=== PATIENT | female | born 1940 | race Caucasian/White ===

== ENCOUNTER 2019-05-19 19:38 | Inpatient (IN) | payer MEDICARE ==
[~2019-05-19] VITALS: Ht 157.5 cm; Wt 54.3 kg
[2019-05-19] MEDS ORDERED: SODIUM CHLORIDE 0.9% 1,000ML IVBOLUS ONE (20:00)
--- NOTE | 2019-05-19 20:11 | NUR ---
[facility] transfer, critically low sodium level at 124, high plateletes and high white blood cell count, fight fever and weakness, antibiotics family does not know source or reason for prescriptions per triage note
--- NOTE | 2019-05-19 20:38 | NUR ---
given ns bolus
[2019-05-19 21:20] LABS: MEAN CORPUSCULAR HEMOGLOBIN 30.5 pg (27.0-34.8); MEAN CORPUSCULAR HGB CONC 32.9 g/dL (32.4-35.8); MEAN CORPUSCULAR VOLUME 92.7 fL (80-100); MEAN PLATELET VOLUME 6.8 fL (7.4-10.4); PLATELET COUNT 528 x10^3/uL (130-400); RED BLOOD COUNT 3.73 x10^6/uL (3.82-5.3); RED CELL DISTRIBUTION WIDTH 13.4 % (9.6-15.2)
--- NOTE | 2019-05-19 21:21 | NUR ---
liter bolus was infused pt is resting vss bp is slight better family at bedside
[2019-05-19 21:34] LABS: ALANINE AMINOTRANSFERASE 34 U/L (12-78); ALBUMIN 1.7 g/dL (3.4-5.0); ANION GAP 9 mmol/L (5-15); CALCIUM 7.9 mg/dL (8.5-10.1); CHLORIDE 96 mmol/L (98-107); CREATININE 0.41 mg/dL (0.55-1.02)
[2019-05-19 21:37] LABS: ALKALINE PHOSPHATASE 80 U/L (45-117); BILIRUBIN,TOTAL 0.3 mg/dL (0.2-1.0); TOTAL PROTEIN 5.7 g/dL (6.4-8.2); TROPONIN I < 0.015 ng/mL (0.000-0.045)
[2019-05-19 21:38] LABS: MD YES
[2019-05-19 21:41] LABS: <PLATELET ESTIMATE> INCREASED; <RBC MORPHOLOGY> NORMAL; EOS#(MANUAL) 0.43 x10^3/uL (0.0-0.4); EOS% (MANUAL) 2 % (1-7); LYMPH#(MANUAL) 1.08 x10^3/uL (1-3.4); LYMPHS% (MANUAL) 5 % (22-44); MONOS% (MANUAL) 6 % (2-9); SEG#(MANUAL) 18.79 x10^3/uL (1.8-6.8); SEGS% (MANUAL) 87 % (42-75)
[2019-05-19 21:42] LABS: SMALL PLATELETS 1+
--- NOTE | 2019-05-19 22:28 | NUR ---
vss stable pt urinated to bed [facility]
--- NOTE | 2019-05-19 22:59 | NUR ---
[facility] at bed side for admit
[2019-05-19] MEDS ORDERED: BISACODYL 10 MG SUPP PR PRN (23:30)
[2019-05-19] MEDS ORDERED: ONDANSETRON ODT 4 MG PO PRN (23:30)
--- NOTE | 2019-05-19 23:43 | NUR ---
given report to zach griffin at bed side vss updated
[2019-05-20 00:03] VITALS: BP 107/70
[2019-05-20] MEDS: SODIUM CHLORIDE 0.9% 1,000 ML IV SCH ×2 (00:38→12:49)
[2019-05-20] MEDS: HEPARIN 5,000 UNITS/ML, 1ML SQ SCH ×3 (00:38→17:16)
[2019-05-20 01:00] VITALS: BP 107/70
[2019-05-20 02:37] LABS: MICROSCOPIC NOT IND
[2019-05-20 02:41] LABS: CULTURE INDICATED? NO
[2019-05-20 06:31] LABS: MEAN CORPUSCULAR HEMOGLOBIN 30.7 pg (27.0-34.8); MEAN CORPUSCULAR HGB CONC 32.5 g/dL (32.4-35.8); MEAN CORPUSCULAR VOLUME 94.4 fL (80-100); MEAN PLATELET VOLUME 7.2 fL (7.4-10.4); PLATELET COUNT 531 x10^3/uL (130-400); RED BLOOD COUNT 3.48 x10^6/uL (3.82-5.3); RED CELL DISTRIBUTION WIDTH 13.2 % (9.6-15.2)
[2019-05-20 06:42] LABS: ALBUMIN 1.6 g/dL (3.4-5.0); ANION GAP 7 mmol/L (5-15); CALCIUM 7.7 mg/dL (8.5-10.1); CHLORIDE 99 mmol/L (98-107)
[2019-05-20 06:45] LABS: ALANINE AMINOTRANSFERASE 30 U/L (12-78); ALKALINE PHOSPHATASE 72 U/L (45-117); BILIRUBIN,TOTAL 0.3 mg/dL (0.2-1.0); CREATININE 0.29 mg/dL (0.55-1.02)
[2019-05-20 07:47] VITALS: BP 98/63
[2019-05-20 07:49] LABS: MD YES
[2019-05-20 07:51] LABS: BAND#(MANUAL) 0.61 x10^3/uL; BANDS%(MANUAL) 3 % (0-7); EOS#(MANUAL) 0.81 x10^3/uL (0.0-0.4); EOS% (MANUAL) 4 % (1-7); LYMPH#(MANUAL) 1.02 x10^3/uL (1-3.4); LYMPHS% (MANUAL) 5 % (22-44); MONOS#(MANUAL) 0.61 x10^3/uL (0.3-2.7); MONOS% (MANUAL) 3 % (2-9); SEG#(MANUAL) 17.26 x10^3/uL (1.8-6.8); SEGS% (MANUAL) 85 % (42-75)
[2019-05-20 07:52] LABS: <PLATELET ESTIMATE> INCREASED; <PLT MORPHOLOGY> NORMAL PLT MORPH; <RBC MORPHOLOGY> NORMAL
[2019-05-20] MEDS: SENNA/DOCUSATE TABLET PO SCH (08:50)
[2019-05-20 13:19] VITALS: BP 111/65
[2019-05-20] MEDS: ACETAMINOPHEN 325 MG TABLET PO PRN (17:17)
[2019-05-20 19:15] VITALS: BP 95/59
[2019-05-21] MEDS: HEPARIN 5,000 UNITS/ML, 1ML SQ SCH ×3 (00:30→16:30)
[2019-05-21] MEDS: SODIUM CHLORIDE 0.9% 1,000 ML IV SCH ×2 (01:18→15:21)
[2019-05-21 01:34] VITALS: BP 106/66
[2019-05-21 04:55] LABS: MEAN CORPUSCULAR HEMOGLOBIN 31.4 pg (27.0-34.8); MEAN CORPUSCULAR HGB CONC 34.1 g/dL (32.4-35.8); MEAN CORPUSCULAR VOLUME 92.3 fL (80-100); MEAN PLATELET VOLUME 7.2 fL (7.4-10.4); PLATELET COUNT 556 x10^3/uL (130-400); RED BLOOD COUNT 3.42 x10^6/uL (3.82-5.3)
[2019-05-21 05:10] LABS: ANION GAP 4 mmol/L (5-15); CALCIUM 7.6 mg/dL (8.5-10.1); CHLORIDE 102 mmol/L (98-107); CREATININE 0.33 mg/dL (0.55-1.02)
[2019-05-21 06:00] LABS: BASOPHILS # (AUTO) 0.14 x10^3/uL (0-0.1); BASOPHILS % (AUTO) 1 % (0-1); EOSINOPHILS # (AUTO) 0.61 x10^3/uL (0-0.4); EOSINOPHILS % (AUTO) 3 % (1-7); LYMPHOCYTES # (AUTO) 1.16 x10^3/uL (1-3.4); LYMPHOCYTES % (AUTO) 6 % (22-44); MD SCAN; MONOCYTES # (AUTO) 1.09 x10^3/uL (0.2-0.8); MONOCYTES % (AUTO) 6 % (2-9); NEUTROPHILS # (AUTO) 16.81 x10^3/uL (1.8-6.8); NEUTROPHILS % (AUTO) 85 % (42-75)
[2019-05-21 08:20] VITALS: BP 103/67
[2019-05-21] MEDS: SENNA/DOCUSATE TABLET PO SCH (08:47)
[2019-05-21] MEDS ORDERED: FLUMAZENIL 0.1 MG/1 ML, 5ML ONE (08:55)
[2019-05-21] MEDS ORDERED: MIDAZOLAM 1 MG/ML, 5ML ONE (08:55)
[2019-05-21] MEDS ORDERED: NALOXONE 1 MG/ML, 2ML ONE (08:55)
[2019-05-21] MEDS ORDERED: FENTANYL PF 100 MCG/2ML ONE (08:55)
[2019-05-21 12:12] VITALS: BP 110/68
[2019-05-21 19:51] VITALS: BP 117/76
[2019-05-22 00:26] VITALS: BP 110/71
[2019-05-22] MEDS: HEPARIN 5,000 UNITS/ML, 1ML SQ SCH ×3 (00:32→17:34)
[2019-05-22 04:54] LABS: ANION GAP 5 mmol/L (5-15); CALCIUM 7.4 mg/dL (8.5-10.1); CHLORIDE 99 mmol/L (98-107)
[2019-05-22 04:57] LABS: MEAN CORPUSCULAR HEMOGLOBIN 31.1 pg (27.0-34.8); MEAN CORPUSCULAR HGB CONC 33.7 g/dL (32.4-35.8); MEAN CORPUSCULAR VOLUME 92.2 fL (80-100); MEAN PLATELET VOLUME 7.1 fL (7.4-10.4); PLATELET COUNT 542 x10^3/uL (130-400); RED BLOOD COUNT 3.25 x10^6/uL (3.82-5.3); RED CELL DISTRIBUTION WIDTH 13.4 % (9.6-15.2)
[2019-05-22 05:21] LABS: CREATININE 0.31 mg/dL (0.55-1.02)
[2019-05-22] MEDS: SODIUM CHLORIDE 0.9% 1,000 ML IV SCH ×2 (05:35→17:51)
[2019-05-22 05:42] LABS: BASOPHILS # (AUTO) 0.01 x10^3/uL (0-0.1); BASOPHILS % (AUTO) 0 % (0-1); EOSINOPHILS # (AUTO) 0.36 x10^3/uL (0-0.4); EOSINOPHILS % (AUTO) 2 % (1-7); LYMPHOCYTES # (AUTO) 1.48 x10^3/uL (1-3.4); LYMPHOCYTES % (AUTO) 7 % (22-44); MD SCAN; MONOCYTES # (AUTO) 1.09 x10^3/uL (0.2-0.8); MONOCYTES % (AUTO) 5 % (2-9); NEUTROPHILS # (AUTO) 19.92 x10^3/uL (1.8-6.8); NEUTROPHILS % (AUTO) 87 % (42-75)
[2019-05-22 07:55] VITALS: BP 103/63
[2019-05-22] MEDS: SENNA/DOCUSATE TABLET PO SCH (09:50)
[2019-05-22] MEDS: ACETAMINOPHEN 325 MG TABLET PO PRN ×2 (13:35→17:51)
[2019-05-22 14:24] VITALS: BP 96/64
[2019-05-22 14:56] LABS: HCT (SEDRATE) 33.2 % (34.6-47.8)
[2019-05-22 15:09] LABS: CREATINE KINASE, TOTAL 21 U/L (26-192)
[2019-05-22 19:30] VITALS: BP 140/78
[2019-05-22 20:22] VITALS: BP 95/62
[2019-05-23] MEDS: HEPARIN 5,000 UNITS/ML, 1ML SQ SCH ×3 (00:43→16:30)
[2019-05-23 01:00] VITALS: BP 100/61
[2019-05-23 06:34] LABS: MEAN CORPUSCULAR HEMOGLOBIN 30.9 pg (27.0-34.8); MEAN CORPUSCULAR HGB CONC 33.7 g/dL (32.4-35.8); MEAN CORPUSCULAR VOLUME 91.8 fL (80-100); MEAN PLATELET VOLUME 6.9 fL (7.4-10.4); PLATELET COUNT 545 x10^3/uL (130-400); RED BLOOD COUNT 3.47 x10^6/uL (3.82-5.3); RED CELL DISTRIBUTION WIDTH 13.4 % (9.6-15.2)
[2019-05-23 06:43] LABS: ANION GAP 12 mmol/L (5-15); CALCIUM 7.5 mg/dL (8.5-10.1); CHLORIDE 100 mmol/L (98-107); CREATININE 0.25 mg/dL (0.55-1.02)
[2019-05-23 07:15] VITALS: BP 110/73
[2019-05-23 07:19] LABS: BASOPHILS # (AUTO) 0.01 x10^3/uL (0-0.1); BASOPHILS % (AUTO) 0 % (0-1); EOSINOPHILS # (AUTO) 0.55 x10^3/uL (0-0.4); EOSINOPHILS % (AUTO) 3 % (1-7); LYMPHOCYTES # (AUTO) 0.83 x10^3/uL (1-3.4); LYMPHOCYTES % (AUTO) 4 % (22-44); MD SCAN; MONOCYTES % (AUTO) 5 % (2-9); NEUTROPHILS # (AUTO) 17.92 x10^3/uL (1.8-6.8); NEUTROPHILS % (AUTO) 89 % (42-75)
[2019-05-23 08:35] LABS: ABSOLUTE RETICS # 0.079 x10^6/uL (0.5-2.5); RED BLOOD COUNT 3.5 x10^6/uL (3.82-5.3); RETICULOCYTE COUNT % 2.26 % (0.5-1.5)
[2019-05-23] MEDS: SENNA/DOCUSATE TABLET PO SCH (09:00)
[2019-05-23] MEDS: SODIUM CHLORIDE 0.9% 1,000 ML IV SCH (09:10)
[2019-05-23] MEDS ORDERED: LIDOCAINE-MPF 1%, 5ML ONE (11:21)
[2019-05-23] MEDS ORDERED: OMNIPAQUE 350 MG/ML, 75ML BOTTLE ONE (11:30)
[2019-05-23 12:47] VITALS: BP 108/71
[2019-05-23 19:35] VITALS: BP 100/66
[2019-05-24] MEDS: SODIUM CHLORIDE 0.9% 1,000 ML IV SCH ×2 (00:50→13:35)
[2019-05-24] MEDS: HEPARIN 5,000 UNITS/ML, 1ML SQ SCH ×3 (00:50→16:40)
[2019-05-24 00:59] VITALS: BP 124/72
[2019-05-24 04:57] LABS: MEAN CORPUSCULAR HEMOGLOBIN 30.9 pg (27.0-34.8); MEAN CORPUSCULAR HGB CONC 33.3 g/dL (32.4-35.8); MEAN CORPUSCULAR VOLUME 92.7 fL (80-100); MEAN PLATELET VOLUME 6.8 fL (7.4-10.4); PLATELET COUNT 569 x10^3/uL (130-400); RED BLOOD COUNT 3.46 x10^6/uL (3.82-5.3); RED CELL DISTRIBUTION WIDTH 13.4 % (9.6-15.2)
[2019-05-24 05:01] LABS: ANION GAP 5 mmol/L (5-15); CALCIUM 7.4 mg/dL (8.5-10.1); CHLORIDE 101 mmol/L (98-107); CREATININE 0.21 mg/dL (0.55-1.02)
[2019-05-24 05:45] LABS: BASOPHILS # (AUTO) 0.01 x10^3/uL (0-0.1); BASOPHILS % (AUTO) 0 % (0-1); EOSINOPHILS # (AUTO) 0.33 x10^3/uL (0-0.4); EOSINOPHILS % (AUTO) 2 % (1-7); LYMPHOCYTES # (AUTO) 1.32 x10^3/uL (1-3.4); LYMPHOCYTES % (AUTO) 7 % (22-44); MD SCAN; MONOCYTES # (AUTO) 1.04 x10^3/uL (0.2-0.8); MONOCYTES % (AUTO) 5 % (2-9); NEUTROPHILS # (AUTO) 17.52 x10^3/uL (1.8-6.8); NEUTROPHILS % (AUTO) 87 % (42-75)
[2019-05-24 07:08] VITALS: BP 109/69
[2019-05-24] MEDS: SENNA/DOCUSATE TABLET PO SCH (10:01)
[2019-05-24 14:47] VITALS: BP 118/79
[2019-05-24 18:34] VITALS: BP 132/87
[2019-05-25] MEDS: HEPARIN 5,000 UNITS/ML, 1ML SQ SCH ×3 (00:14→18:10)
[2019-05-25 01:13] VITALS: BP 105/61
[2019-05-25] MEDS: SODIUM CHLORIDE 0.9% 1,000 ML IV SCH ×2 (01:51→17:00)
[2019-05-25 06:38] VITALS: BP 110/73
[2019-05-25] MEDS: SENNA/DOCUSATE TABLET PO SCH (09:36)
[2019-05-25 14:02] LABS: MEAN CORPUSCULAR HEMOGLOBIN 30.2 pg (27.0-34.8); MEAN CORPUSCULAR HGB CONC 32.3 g/dL (32.4-35.8); MEAN CORPUSCULAR VOLUME 93.4 fL (80-100); MEAN PLATELET VOLUME 7.1 fL (7.4-10.4); PLATELET COUNT 613 x10^3/uL (130-400); RED BLOOD COUNT 3.57 x10^6/uL (3.82-5.3); RED CELL DISTRIBUTION WIDTH 13.6 % (9.6-15.2)
[2019-05-25 14:17] LABS: BASOPHILS # (AUTO) 0.01 x10^3/uL (0-0.1); BASOPHILS % (AUTO) 0 % (0-1); EOSINOPHILS % (AUTO) 0 % (1-7); LYMPHOCYTES # (AUTO) 1.06 x10^3/uL (1-3.4); LYMPHOCYTES % (AUTO) 5 % (22-44); MD SCAN; MONOCYTES # (AUTO) 0.38 x10^3/uL (0.2-0.8); MONOCYTES % (AUTO) 2 % (2-9); NEUTROPHILS # (AUTO) 19.51 x10^3/uL (1.8-6.8); NEUTROPHILS % (AUTO) 93 % (42-75)
[2019-05-25 14:21] VITALS: BP 105/70
[2019-05-25 20:31] VITALS: BP 105/69
[2019-05-25] MEDS: ACETAMINOPHEN 325 MG TABLET PO PRN (21:00)
[2019-05-26] MEDS: HEPARIN 5,000 UNITS/ML, 1ML SQ SCH ×3 (00:30→16:53)
[2019-05-26 01:03] VITALS: BP 109/61
[2019-05-26] MEDS: SODIUM CHLORIDE 0.9% 1,000 ML IV SCH ×2 (06:20→19:40)
[2019-05-26 06:26] LABS: MEAN CORPUSCULAR HEMOGLOBIN 30.9 pg (27.0-34.8); MEAN CORPUSCULAR HGB CONC 33.3 g/dL (32.4-35.8); MEAN CORPUSCULAR VOLUME 92.8 fL (80-100); MEAN PLATELET VOLUME 7.4 fL (7.4-10.4); PLATELET COUNT 601 x10^3/uL (130-400); RED BLOOD COUNT 3.21 x10^6/uL (3.82-5.3); RED CELL DISTRIBUTION WIDTH 13.8 % (9.6-15.2)
[2019-05-26 06:27] LABS: ANION GAP 4 mmol/L (5-15); CALCIUM 7.7 mg/dL (8.5-10.1); CHLORIDE 105 mmol/L (98-107)
[2019-05-26 06:29] LABS: CREATININE 0.27 mg/dL (0.55-1.02)
[2019-05-26 06:56] LABS: BASOPHILS # (AUTO) 0.03 x10^3/uL (0-0.1); BASOPHILS % (AUTO) 0 % (0-1); EOSINOPHILS # (AUTO) 0.07 x10^3/uL (0-0.4); EOSINOPHILS % (AUTO) 0 % (1-7); LYMPHOCYTES # (AUTO) 1.95 x10^3/uL (1-3.4); LYMPHOCYTES % (AUTO) 11 % (22-44); MD SCAN; MONOCYTES # (AUTO) 1.14 x10^3/uL (0.2-0.8); MONOCYTES % (AUTO) 6 % (2-9); NEUTROPHILS % (AUTO) 82 % (42-75)
[2019-05-26 07:29] VITALS: BP 106/69
[2019-05-26] MEDS: SENNA/DOCUSATE TABLET PO SCH (08:55)
[2019-05-26] MEDS: ACETAMINOPHEN 325 MG TABLET PO PRN (09:05)
[2019-05-26 13:18] VITALS: BP 116/73
[2019-05-26 20:29] VITALS: BP 118/75
[2019-05-27] MEDS: HEPARIN 5,000 UNITS/ML, 1ML SQ SCH ×3 (00:30→17:30)
[2019-05-27 01:25] VITALS: BP 133/82
[2019-05-27 06:43] VITALS: BP 94/50
[2019-05-27 07:35] VITALS: BP 118/72
[2019-05-27] MEDS: SODIUM CHLORIDE 0.9% 1,000 ML IV SCH ×2 (09:00→20:24)
[2019-05-27] MEDS: SENNA/DOCUSATE TABLET PO SCH (09:39)
[2019-05-27] MEDS: ACETAMINOPHEN 325 MG TABLET PO PRN (09:39)
[2019-05-27 12:44] VITALS: BP 108/68
[2019-05-27 18:41] VITALS: BP 116/72
[2019-05-28 00:41] VITALS: BP 121/69
[2019-05-28] MEDS: HEPARIN 5,000 UNITS/ML, 1ML SQ SCH ×3 (00:43→18:09)
[2019-05-28 06:20] LABS: CHLORIDE 104 mmol/L (98-107)
[2019-05-28 06:26] LABS: ALBUMIN 1.7 g/dL (3.4-5.0); ANION GAP 6 mmol/L (5-15); CALCIUM 7.8 mg/dL (8.5-10.1); CREATININE 0.32 mg/dL (0.55-1.02)
[2019-05-28 06:27] LABS: MEAN CORPUSCULAR HEMOGLOBIN 30.7 pg (27.0-34.8); MEAN CORPUSCULAR HGB CONC 33.2 g/dL (32.4-35.8); MEAN CORPUSCULAR VOLUME 92.7 fL (80-100); MEAN PLATELET VOLUME 7.4 fL (7.4-10.4); PLATELET COUNT 682 x10^3/uL (130-400); RED CELL DISTRIBUTION WIDTH 13.7 % (9.6-15.2)
[2019-05-28 06:55] LABS: BASOPHILS # (AUTO) 0.04 x10^3/uL (0-0.1); BASOPHILS % (AUTO) 0 % (0-1); EOSINOPHILS # (AUTO) 0.33 x10^3/uL (0-0.4); EOSINOPHILS % (AUTO) 2 % (1-7); LYMPHOCYTES # (AUTO) 2.51 x10^3/uL (1-3.4); LYMPHOCYTES % (AUTO) 11 % (22-44); MD SCAN; MONOCYTES # (AUTO) 1.27 x10^3/uL (0.2-0.8); MONOCYTES % (AUTO) 6 % (2-9); NEUTROPHILS # (AUTO) 17.77 x10^3/uL (1.8-6.8); NEUTROPHILS % (AUTO) 81 % (42-75)
[2019-05-28 07:11] VITALS: BP 128/80
[2019-05-28] MEDS ORDERED: POTASSIUM CHLORIDE 20 MEQ TAB.ER.PRT PO ONE (09:00)
[2019-05-28] MEDS: SENNA/DOCUSATE TABLET PO SCH (10:05)
[2019-05-28 15:21] VITALS: BP 121/82
[2019-05-28 18:51] VITALS: BP 109/74
[2019-05-29] MEDS: HEPARIN 5,000 UNITS/ML, 1ML SQ SCH ×3 (01:12→17:30)
[2019-05-29 03:43] VITALS: BP 114/72
[2019-05-29 06:50] LABS: MEAN CORPUSCULAR HEMOGLOBIN 30.5 pg (27.0-34.8); MEAN CORPUSCULAR HGB CONC 32.3 g/dL (32.4-35.8); MEAN CORPUSCULAR VOLUME 94.4 fL (80-100); MEAN PLATELET VOLUME 7.5 fL (7.4-10.4); PLATELET COUNT 631 x10^3/uL (130-400); RED BLOOD COUNT 3.69 x10^6/uL (3.82-5.3)
[2019-05-29 06:57] LABS: ANION GAP 6 mmol/L (5-15); CALCIUM 7.9 mg/dL (8.5-10.1); CHLORIDE 102 mmol/L (98-107); CREATININE 0.33 mg/dL (0.55-1.02)
[2019-05-29 07:53] VITALS: BP 109/72
[2019-05-29 08:33] LABS: MD YES
[2019-05-29 08:34] LABS: BAND#(MANUAL) 1.77 x10^3/uL; BANDS%(MANUAL) 7 % (0-7); EOS#(MANUAL) 0.51 x10^3/uL (0.0-0.4); EOS% (MANUAL) 2 % (1-7); LYMPH#(MANUAL) 2.02 x10^3/uL (1-3.4); LYMPHS% (MANUAL) 8 % (22-44); MONOS#(MANUAL) 0.51 x10^3/uL (0.3-2.7); MONOS% (MANUAL) 2 % (2-9); SEG#(MANUAL) 20.49 x10^3/uL (1.8-6.8); SEGS% (MANUAL) 81 % (42-75)
[2019-05-29 08:35] LABS: <PLATELET ESTIMATE> INCREASED; ANISOCYTOSIS 1+; LARGE PLATELETS 1+
[2019-05-29] MEDS: SENNA/DOCUSATE TABLET PO SCH (09:36)
[2019-05-29] MEDS: ACETAMINOPHEN 325 MG TABLET PO PRN (10:23)
[2019-05-29 13:25] VITALS: BP 103/68
[2019-05-29] MEDS ORDERED: POTASSIUM CHLORIDE 20 MEQ TAB.ER.PRT PO ONE (15:30)
[2019-05-29] MEDS: POLYETHYLENE GLYCOL 17 GM PACKET PO PRN (16:27)
[2019-05-29 19:59] VITALS: BP 127/82
[2019-05-30] MEDS: HEPARIN 5,000 UNITS/ML, 1ML SQ SCH ×3 (01:27→17:40)
[2019-05-30 02:54] VITALS: BP 137/84
[2019-05-30 07:05] VITALS: BP 114/78
[2019-05-30] MEDS: SENNA/DOCUSATE TABLET PO SCH (09:38)
[2019-05-30] MEDS: POLYETHYLENE GLYCOL 17 GM PACKET PO PRN (09:38)
[2019-05-30 13:31] VITALS: BP 102/63
[2019-05-30 20:48] VITALS: BP 101/60
[2019-05-31 01:37] VITALS: BP 120/76
[2019-05-31] MEDS: HEPARIN 5,000 UNITS/ML, 1ML SQ SCH ×3 (02:04→17:21)
[2019-05-31 07:29] VITALS: BP 121/81
[2019-05-31] MEDS: SENNA/DOCUSATE TABLET PO SCH (09:00)
[2019-05-31 13:26] VITALS: BP 96/60
[2019-05-31] MEDS ORDERED: PRED20TA PO (15:27)
[2019-05-31 20:07] VITALS: BP 105/63
[2019-06-01 00:46] VITALS: BP 113/63
[2019-06-01] MEDS: HEPARIN 5,000 UNITS/ML, 1ML SQ SCH ×3 (01:32→17:36)
[2019-06-01 07:38] VITALS: BP 104/64
[2019-06-01] MEDS: SENNA/DOCUSATE TABLET PO SCH (09:12)
[2019-06-01] MEDS: ACETAMINOPHEN 325 MG TABLET PO PRN (09:24)
[2019-06-01 12:10] VITALS: BP 103/61
[2019-06-01 21:00] VITALS: BP 107/65
[2019-06-02] MEDS: HEPARIN 5,000 UNITS/ML, 1ML SQ SCH ×2 (01:02→09:25)
[2019-06-02 01:29] VITALS: BP 131/83
[2019-06-02 06:46] VITALS: BP 129/75
[2019-06-02] MEDS: SENNA/DOCUSATE TABLET PO SCH (09:25)
[2019-06-02] MEDS ORDERED: PRED10TA PO (15:39)
[2019-06-02] MEDS ORDERED: PRED20TA PO (15:39)
== END 2019-06-02 15:45 | disposition home health service (06) | DRG 814 ==
LOC: ED 23:21 → 4NW 05-20 00:51 → 4WST 05-22 19:23 → DCLOUNGE 06-02 15:35
PROVIDERS: ADMIT Hospitalist; ATTEND Hospitalist
PROC: 0T9B70Z Drainage of Bladder with Drainage Device, Via Natural or Artificial Opening (ICD-10-PCS; 2019-05-20)
PROC: 07DR3ZX Extraction of Iliac Bone Marrow, Percutaneous Approach, Diagnostic (ICD-10-PCS; principal; 2019-05-21)
PROC: 009U3ZX Drainage of Spinal Canal, Percutaneous Approach, Diagnostic (ICD-10-PCS; 2019-05-23)
PROC: B01B1ZZ Fluoroscopy of Spinal Cord using Low Osmolar Contrast (ICD-10-PCS; 2019-05-23)
DX: D72.1 Eosinophilia (principal); E43 Unspecified severe protein-calorie malnutrition; E87.1 Hypo-osmolality and hyponatremia; D47.3 Essential (hemorrhagic) thrombocythemia; E55.9 Vitamin D deficiency, unspecified; M51.36 Other intervertebral disc degeneration, lumbar region; I48.91 Unspecified atrial fibrillation; I08.1 Rheumatic disorders of both mitral and tricuspid valves; E87.6 Hypokalemia; I73.9 Peripheral vascular disease, unspecified; K57.90 Diverticulosis of intestine, part unspecified, without perforation or abscess without bleeding; H66.92 Otitis media, unspecified, left ear; K59.00 Constipation, unspecified; Z92.21 Personal history of antineoplastic chemotherapy; Z90.2 Acquired absence of lung [part of]; Z90.710 Acquired absence of both cervix and uterus; Z80.6 Family history of leukemia; Z80.3 Family history of malignant neoplasm of breast; Z85.118 Personal history of other malignant neoplasm of bronchus and lung; Z87.891 Personal history of nicotine dependence; Z80.0 Family history of malignant neoplasm of digestive organs; Z87.01 Personal history of pneumonia (recurrent); Z68.21 Body mass index [BMI] 21.0-21.9, adult; Z79.899 Other long term (current) drug therapy
CPT/HCPCS: 36415; 38222; 62328; 70450; 71045; 71260; 72146; 72148; 77012; 80048; 80053; 81003; 82040; 82085; 82378; 82533; 82550; 82607; 82728; 82945; 83516; 83520; 83540; 83550; 83605; 83615; 83735; 83874; 84100; 84145; 84157; 84443; 84484; 85025; 85045; 85060; 85097; 85651; 86038; 86140; 86160; 86225; 86235; 86255; 86256; 86376; 86431; 86480; 86622; 86635; 86638; 86682; 86698; 87040; 87070; 87205; 88184; 88185; 88237; 88264; 88280; 88305; 88311; 88313; 88374; 89051; 93005; 93306; 96360; 99156; 99157; G0378; J1644; J2250; J3010; Q0162; Q9967; J2310; J7030; J7512